=== PATIENT | male | born 1985 | race Caucasian/White ===

== ENCOUNTER 2017-10-21 22:46 | Emergency (ER) | payer OTHER ==
[2017-10-21] MEDS ORDERED: Ketorolac INJ* 60 MG/2 ML VIAL IM ONE (23:21)
[2017-10-21 23:36] LABS: ABS Basophils 0 10^3/ul (0-0.2); ABS Eosinophils 0 10^3/ul (0-0.6); ABS Lymphocytes 2.3 10^3/ul (1.0-4.8); ABS Neutrophils 5.9 10^3/ul (1.5-7.7); ABS Nucleated RBC 0 10^3/ul; Eosinophil % 0.1 % (0-6); Hematocrit 39 % (42-52); Hemoglobin 13.6 g/dl (14.0-18.0); Lymphocyte % 24.7 % (25-47); Mean Corpuscular HGB Conc 35 g/dl (31-36); Mean Corpuscular Hemoglobin 32 pg (27-31); Mean Corpuscular Volume 90 fL (80-94); Mean Platelet Volume 6.2 um3 (7.4-10.4); Nucleated Red Blood Cells % 0.1; Platelet Count 308 10^3/ul (150-450); Red Blood Count 4.29 10^6/ul (4.00-5.40); Red Cell Distribution Width 13 % (10.5-15); White Blood Count 9.2 10^3/ul (3.5-10.8)
--- NOTE | 2017-10-21 23:38 | ED ---
Complex/Multi-Sys Presentation - HPI Summary HPI Summary: 31-year-old male presents with joint aches for the past 2 days. States he's had on tick bites the past couple months. He states he was treated with doxycycline for the tick bites as he got them. He denies any recent rashes. Denies any fevers. He denies any rash to the area. He denies any swelling to joints. He states it feels like his joints are locking up. He states is mostly on his right side the pain but recently it has moved to the left. He states that his ankle, big toe, and elbow hurt. He denies any numbness or tingling. No weakness. He'll states he was exposed to asbestos. Denies any cough. No chest pain or shortness of breath. never had these symptoms before. - History Of Current Complaint Chief Complaint: EDGeneral Time Seen by Provider: 10/21/17 23:16 - Allergies/Home Medications Allergies/Adverse Reactions: Allergies Allergy/AdvReac Type Severity Reaction Status Date / Time No Known Allergies Allergy Verified 10/21/17 22:49 PMH/Surg Hx/FS Hx/Imm Hx Endocrine/Hematology History: Denies: Hx Diabetes Cardiovascular History: Denies: Hx Congestive Heart Failure History: Denies: Hx Renal Disease Neurological History: Reports: Other Neuro Impairments/Disorders - TENSION HEADACHES/MIGRAINES - Surgical History Surgery Procedure, Year, and Place: Tonsillectomy - Immunization History Date of Tetanus Vaccine: UNK Date of Influenza Vaccine: UNK Infectious Disease History: No Infectious Disease History: Denies: Traveled Outside the [place] in Last 30 Days - Social History Alcohol Use: None Substance Use Type: Reports: None Smoking Status (MU): Heavy Every Day Tobacco Smoker Review of Systems Negative: Fever Negative: Chest Pain Negative: Shortness Of Breath Positive: Myalgia - ankle, great toe, and elbow All Other Systems Reviewed And Are Negative: Yes Physical Exam Triage Information Reviewed: Yes Vital Signs On Initial Exam: Initial Vitals Temp Pulse Resp BP Pulse Ox 97.9 F 86 18 133/69 95 10/21/17 22:50 10/21/17 22:50 10/21/17 22:50 10/21/17 22:50 10/21/17 22:50 Vital Signs Reviewed: Yes Appearance: Positive: Well-Appearing Skin: Positive: Warm, Dry, Other - minimal erythema around right great toe nail bed, no abscess noted Head/Face: Positive: Normal Head/Face Inspection Eyes: Positive: Normal, Conjunctiva Clear ENT: Positive: Pharynx normal Respiratory/Lung Sounds: Positive: Clear to Auscultation, Breath Sounds Present Cardiovascular: Positive: Normal, RRR Musculoskeletal: Positive: Strength/ROM Intact - great toe with pain, left ankle , Limited @ - right elbow feeling that locks, right ankle, Other - good pulses, tenderness right great toe, ankle, and elbow and left ankle.. Negative: Edema Left, Edema Right Neurological: Positive: Normal Psychiatric: Positive: Normal Diagnostics - Vital Signs Vital Signs Temp Pulse Resp BP Pulse Ox 10/21/17 22:50 97.9 F 86 18 133/69 95 - Laboratory Lab Results: Lab Results 10/21/17 Range/Units 23:26 WBC 9.2 (3.5-10.8) 10^3/ul RBC 4.29 (4.00-5.40) 10^6/ul Hgb 13.6 L (14.0-18.0) g/dl Hct 39 L (42-52) % MCV 90 (80-94) fL MCH 32 H (27-31) pg MCHC 35 (31-36) g/dl RDW 13 (10.5-15) % Plt Count 308 (150-450) 10^3/ul MPV 6.2 L (7.4-10.4) um3 Neut % (Auto) 63.7 (38-83) % Lymph % (Auto) 24.7 L (25-47) % [place] % (Auto) 11.0 H (0-7) % Eos % (Auto) 0.1 (0-6) % Baso % (Auto) 0.5 (0-2) % Absolute Neuts (auto) 5.9 (1.5-7.7) 10^3/ul Absolute Lymphs (auto) 2.3 (1.0-4.8) 10^3/ul Absolute Monos (auto) 1.0 H (0-0.8) 10^3/ul Absolute Eos (auto) 0 (0-0.6) 10^3/ul Absolute Basos (auto) 0 (0-0.2) 10^3/ul Absolute Nucleated RBC 0 10^3/ul Nucleated RBC % 0.1 ESR Pending Result Diagrams: 10/21/17 23:26 10/21/17 23:26 Lab Statement: Any lab studies that have been ordered have been reviewed, and results considered in the medical decision making process. Complex Multi-Symp Course/Dx Course Of Treatment: 31-year-old male presents with joint aches for the past 2 days. States he's had on tick bites the past couple months. He states he was treated with doxycycline for the tick bites as he got them. He denies any recent rashes. Denies any fevers. He denies any rash to the area. He denies any swelling to joints. He states it feels like his joints are locking up. He states is mostly on his right side the pain but recently it has moved to the left. He states that his ankle, big toe, and elbow hurt. He denies any numbness or tingling. No weakness. He'll states he was exposed to asbestos. Denies any cough. No chest pain or shortness of breath. on exam has minimial erythema around nailbed of right great toe that is warm to touch appears like early paronchynia so told to do warm soaks and watch the area. right great toe joint, ankle, and elbow no erythema or edema noted. neurovascular intact. labs wbc normal. crp elevated. discussed will treat as potential lyme disease with doxycycline. told to follow up with primary. patient understand and agrees with plan. - Diagnoses Differential Diagnoses/HQI/PQRI: Metabolic Abnormality, Sepsis, Other - lyme Provider Diagnoses: Joint pain Discharge - Sign-Out/Discharge Documenting (check all that apply): Patient Departure - Discharge Plan Condition: Good Disposition: HOME Prescriptions: DOXYcycline CAP(*) [DOXYcycline 100MG CAP(*)] 100 mg PO BID #27 cap hydrOXYzine HCL TAB* [Atarax 25 MG TAB*] 25 mg PO TID PRN #20 tab PRN Reason: Anxiety Patient Education Materials: Arthralgia (ED) Referrals: Valorie Damon MD [Primary Care Provider] - Additional Instructions: take doxycycline twice a day for 14 days Do warm soaks for toe take hydroxyzine up to three times a day for anxiety take tyenlol or ibuprofen every 6 hours for pain ice, elevate Follow up with primary within 7 days Return to ED if develop any new or worsening symptoms - Billing Disposition and Condition Condition: GOOD Disposition: Home
[2017-10-21 23:54] LABS: EGFR Non-African American 109.5 (>60)
[2017-10-22] MEDS ORDERED: DOXYcycline CAP(*) 100 MG PO ONE (00:07)
[2017-10-22] MEDS ORDERED: hydrOXYzine HCL TAB* 25 MG PO ONE (00:07)
[2017-10-22 00:47] VITALS: BP 123/78
== END 2017-10-22 00:45 | disposition home or self-care (01) ==
LOC: ED 22:46
DX: M25.50 Pain in unspecified joint (principal); F17.210 Nicotine dependence, cigarettes, uncomplicated
CPT/HCPCS: 36415; 80053; 82550; 85025; 85652; 86140; 86617; 86618; 96372; 99282; A9270-GY; J1885